=== PATIENT | male | born 1995 | race Hispanic/Latino ===

== ENCOUNTER 2022-01-15 10:03 | Emergency (ER) | payer OTHER ==
[~2022-01-15] VITALS: Ht 175.3 cm; Wt 90.7 kg
[2022-01-15 10:10] VITALS: BP 139/86
[2022-01-15] MEDS ORDERED: LIDOCAINE HCL 1% 10 ML VIAL ONE (10:14)
[2022-01-15] MEDS ORDERED: CEPH250 PO (10:19)
[2022-01-15] MEDS ORDERED: NEOMY SULF/BACITRA/POLYMYXIN B 1 EACH PACKET TP STA (10:20)
== END 2022-01-15 10:55 | disposition home or self-care (01) ==
LOC: EDH 10:03
DX: S61.412A Laceration without foreign body of left hand, initial encounter (principal); Z88.2 Allergy status to sulfonamides; X58.XXXA Exposure to other specified factors, initial encounter; Y93.89 Activity, other specified; Y92.89 Other specified places as the place of occurrence of the external cause; Y99.8 Other external cause status
CPT/HCPCS: 99283; 12002; J3490

== ENCOUNTER 2023-09-23 09:43 | Day surgery (SDC) | payer OTHER ==
[2023-09-19 11:40] LABS: BASOPHILS # (AUTO) 0.05 K/uL (0.00-0.20); BASOPHILS % (AUTO) 1.1 % (0.0-5.0); EOSINOPHILS # (AUTO) 0.14 K/uL (0.00-0.70); HEMATOCRIT 48.4 % (42-54); IMMATURE GRANULOCYTE ABSOLUTE 0.01 K/uL (0-1); LYMPHOCYTES # (AUTO) 2.1 K/uL (1.0-4.8); LYMPHOCYTES % (AUTO) 44.6 % (21.0-51.0); MEAN CORPUSCULAR HEMOGLOBIN 29.9 pg (27.0-33.0); MEAN CORPUSCULAR VOLUME 83.2 fL (79-99); MONOCYTES # (AUTO) 0.3 K/uL (0.1-1.0); MONOCYTES % (AUTO) 7.3 % (3.0-13.0); NEUTROPHILS % (AUTO) 43.8 % (40.0-77.0); PLATELET COUNT (AUTO) 217 K/uL (130-400); RED BLOOD CELL COUNT(AUTO) 5.82 MIL/uL (4.50-6.20); WHITE BLOOD COUNT (AUTO) 4.6 K/uL (4.8-10.8)
[2023-09-19 11:46] VITALS: BP 116/78; PULSE 57; RESP 18
[2023-09-19 11:53] LABS: CREATININE 0.9 mg/dL (0.5-1.3); POTASSIUM 4.5 mmol/L (3.5-5.1)
[2023-09-23] VITALS (22 sets, daily range): BP systolic 122–162; BP diastolic 54–85; PULSE 74–98; RESP 14–20
[~2023-09-23] VITALS: Ht 175.3 cm; Wt 88.8 kg
[2023-09-23] MEDS: CEFAZOLIN SODIUM 2 GM VIAL ONE (10:45)
[2023-09-23] MEDS: LACTATED RINGERS 1000ML 1,000 ML IV ONE (10:46)
[2023-09-23] MEDS: SCOPOLAMINE HYDROBROMIDE 1 EACH ADH..PATCH TD ONE (12:00)
[2023-09-23] MEDS ORDERED: MIDAZOLAM HCL 1 MG/ML 2ML VIAL ONE (12:19)
[2023-09-23] MEDS ORDERED: ONDANSETRON 4MG INJ ONE ×2 (12:24→15:06)
[2023-09-23] MEDS ORDERED: ROPIVACAINE 0.5% 5MG/ML 30ML ONE (12:25)
[2023-09-23] MEDS ORDERED: PROPOFOL 10 MG/ML 20ML VIAL IV ONE (12:30)
[2023-09-23] MEDS ORDERED: FENTANYL CITRATE PF 50 MCG/1 ML 2ML VIAL ONE ×2 (12:31→14:10)
[2023-09-23] MEDS: CEFAZOLIN SODIUM 2 GM VIAL IVPB ONE (12:42)
[2023-09-23] MEDS ORDERED: PHENYLEPHRINE HCL 10 MG/ML 1ML VIAL IV ONE (12:43)
[2023-09-23] MEDS ORDERED: DiphenhydrAMINE HCL 50 MG/ML VIAL ONE ×2 (12:58→15:06)
[2023-09-23] MEDS ORDERED: KETOROLAC 30MG VIAL (30MG/ML) ONE ×2 (12:58→15:04)
[2023-09-23] MEDS ORDERED: CEFAZOLIN SODIUM 1 GM VIAL ONE (13:10)
[2023-09-23] MEDS ORDERED: EPHEDRINE SULFATE 50 MG/ML AMPULE ONE (13:25)
[2023-09-23] MEDS ORDERED: HYDROCODONE/ACETAMINOPHEN 10/325 MG TAB PO PRN (15:30)
[2023-09-23] MEDS: CEFAZOLIN SODIUM 2 GM VIAL IVPB SCH (16:00)
[2023-09-23] MEDS: CEFAZOLIN SODIUM 1 GM VIAL ONE (16:45)
[2023-09-23] MEDS ORDERED: CALDOLOR 800MG+NS 250ML 250 ML IV ONE (17:14)
[2023-09-23] MEDS: CALDOLOR 800MG+NS 250ML 250 ML IV SCH (17:22)
== END 2023-09-23 19:00 | disposition home or self-care (01) ==
LOC: DAH 09:43
PROVIDERS: ATTEND Orthopaedic Surgery
DX: S83.512A Sprain of anterior cruciate ligament of left knee, initial encounter (principal); S83.282A Other tear of lateral meniscus, current injury, left knee, initial encounter; S83.252A Bucket-handle tear of lateral meniscus, current injury, left knee, initial encounter; M94.261 Chondromalacia, right knee; M25.462 Effusion, left knee; X58.XXXA Exposure to other specified factors, initial encounter; Z79.899 Other long term (current) drug therapy; Y93.89 Activity, other specified; Y92.89 Other specified places as the place of occurrence of the external cause; Y99.8 Other external cause status
CPT/HCPCS: 80048; 85025; 36415; 64447; 29883; 29888; 73562; A6260; C1713 ×7; C1762; A4663; J7030; J7120; J1200 ×2; J3010 ×2; J0690 ×4; J3490; J2250; J2704; J2405 ×2; J1885 ×2; J2795; J2371; J1741; A6223; G0168; A4649 ×2; A4930; C1776; A4215; A4223; A4222; A4221; A6450